=== PATIENT | female | born 1950 ===

== ENCOUNTER 2022-01-16 06:55 | Day surgery (SDC) | payer OTHER ==
[~2022-01-16] VITALS: Ht 152.4 cm; Wt 51.7 kg
[~2022-01-16 06:55] MED LIST: COZAAR25 MG PO
[2022-01-16] MEDS ORDERED: IBU600 MG PO (12:12)
== END 2022-01-16 14:50 | disposition home or self-care (01) ==
LOC: SURH 06:55 → CIR.AMB 06:55 → O/R 06:55 → CIR.AMB 14:50
PROVIDERS: ATTEND Obstetrics & Gynecology Gynecology
DX: N81.11 Cystocele, midline (principal); I10 Essential (primary) hypertension; J45.909 Unspecified asthma, uncomplicated; K21.9 Gastro-esophageal reflux disease without esophagitis; G62.9 Polyneuropathy, unspecified